=== PATIENT | female | born 1985 | race Caucasian/White ===

== ENCOUNTER 2016-05-01 12:15 | Observation (INO) | payer SELFPAY ==
[2016-05-01] MEDS ORDERED: IV RINGERS,LACTATED 1000ML 1,000 ML IV SCH (13:21)
[2016-05-01 13:46] LABS: BILIRUBIN,URINE NEGATIVE (NEG); GLUCOSE,URINE NEGATIVE (NEG); NITRITE,URINE NEGATIVE (NEG); PH,URINE 6.5
[2016-05-01 13:50] LABS: BARBITURATES NEG (NEG); BENZODIAZEPINES NEG (NEG); CANNABINOIDS NEG (NEG); COCAINE NEG (NEG); METHADONE NEG (NEG); OPIATES NEG (NEG); PHENCYCLIDINE NEG (NEG)
[2016-05-01 13:51] LABS: ETHANOL, URINE NEG (NEG)
[2016-05-01 14:08] LABS: BACTERIA,URINE FEW /HPF (0-FEW); PROTEIN,URINE NEGATIVE (NEG-TRACE); SQUAMOUS EPITHELIAL CELL,UR MOD /LPF
[2016-05-01 14:20] LABS: BASO % 0 % (0-3); EOS % 1 % (0-3); HEMATOCRIT 33.2 % (36.0-47.0); HEMOGLOBIN 11.1 g/dL (12.0-15.5); LYMPH # 1.4 x10^3/uL (1.0-4.8); LYMPH % 14 % (24-48); MEAN CORPUSCULAR HEMOGLOBIN 29 pg (25-35); MEAN CORPUSCULAR HGB CONC 33 g/dL (31-37); MEAN CORPUSCULAR VOLUME 88 fL (79-100); MONO % 9 % (0-9); NEUT % 76 % (31-73); PLATELET COUNT 202 x10^3/uL (140-400); RED BLOOD COUNT 3.76 x10^6/uL (3.50-5.40); RED CELL DISTRIBUTION WIDTH 14.3 % (11.5-14.5); WHITE BLOOD COUNT 9.7 x10^3/uL (4.0-11.0)
--- NOTE | 2016-05-01 16:02 | RAD ---
OB ultrasound History: Limited care. Comparison: None. Findings: There is a single intrauterine gestation in cephalic presentation. The placenta is anterior in location. Cervix is not imaged and consequently, determination of a placenta previa cannot be made. The amount of amniotic fluid appears appropriate. Amniotic fluid index is 16.1 cm. Biometric data is as follows: BPD = 9.26 cm for 37 weeks 4 days. HC = 33.16 cm for 37 weeks 6 days. AC = 32.86 cm for 36 weeks 5 days. FL = 7.27 cm for 37 weeks 2 days. HC/AC ratio = 1.01, within normal limits. Overall, the average ultrasound age age is 37 weeks 3 days for an estimated date of delivery of 05/19/2016. The estimated date of delivery provided by the last menstrual period is 05/20/2016. Estimated weight is 3116 +/- 461 grams which is at the 49th percentile. Survey anomalies was not performed. The estimated heart rate is 145 beats per minute. Impression: 1. Single live intrauterine gestation in cephalic presentation with average ultrasound age of 37 weeks 3 days. Estimated date of delivery is May 19, 2016. 2. Survey of anomalies was not performed. 3. Cervix was not imaged and is not evaluated. Consequently, evaluation for placenta previa is limited.
[2016-05-02 07:26] LABS: HEP B SURFACE ABDY Reactive (.)
== END 2016-05-01 16:40 | disposition home or self-care (01) ==
LOC: 3 SO LND 12:15
PROVIDERS: ADMIT Obstetrics & Gynecology; ATTEND Obstetrics & Gynecology
DX: O26.893 Other specified pregnancy related conditions, third trimester (principal); R10.9 Unspecified abdominal pain; Z3A.37 37 weeks gestation of pregnancy
CPT/HCPCS: 36415; 76815; 81001; 85027; 86593; 86703; 86706; 86762; 86850; 86900; 86901; 87086; 87491; 87591; 87653; G0378; G0379; G0481

== ENCOUNTER 2016-05-05 16:43 | Inpatient (IN) | payer SELFPAY ==
[2016-05-05] MEDS ORDERED: DIPHENHYDRAMINE HCL 25 MG CAPSULE PO ONE (19:30)
[2016-05-05] MEDS ORDERED: IV RINGERS,LACTATED 1000ML 1,000 ML IV SCH (22:00)
[2016-05-05] MEDS ORDERED: BUTORPHANOL 2 MG VIAL. IV PRN (22:00)
[2016-05-05] MEDS ORDERED: DOCUSATE SODIUM 283 MG/5 ML ENEMA. PR ONE (22:15)
== END 2016-05-06 00:03 | disposition home or self-care (01) | DRG 780 ==
LOC: 3 SO LND 16:43 → OBSVTOIN 16:43
PROVIDERS: ADMIT Obstetrics & Gynecology; ATTEND Obstetrics & Gynecology
DX: O47.1 False labor at or after 37 completed weeks of gestation (principal); Z3A.37 37 weeks gestation of pregnancy
CPT/HCPCS: J7120; Q0163